=== PATIENT | female | born 2000 | race Caucasian/White ===

== ENCOUNTER 2020-09-28 07:43 | Outpatient (REF) | payer SELFPAY | END 2020-09-28 07:44 | disposition home or self-care (01) | LOC: HO.LAB 07:43 | PROVIDERS: Visit Provider Internal Medicine | DX: Z20.828 Contact with and (suspected) exposure to other viral communicable diseases (principal) | CPT/HCPCS: C9803; U0003 ==

== ENCOUNTER 2024-02-24 10:58 | Outpatient (REF) | payer SELFPAY ==
[2024-02-24 13:43] LABS: Estimated Average Glucose 117 mg/dL; Hemoglobin A1c % 5.7 % (<6.0)
[2024-02-24 14:10] LABS: TSH reflex Free T4 1.73 uIU/mL (0.32-4.0)
== END 2024-02-24 10:59 | disposition home or self-care (01) ==
LOC: HO.HHCL 10:58
PROVIDERS: Visit Provider Registered Nurse
DX: Z00.00 Encounter for general adult medical examination without abnormal findings (principal)
CPT/HCPCS: 36415; 83036; 84443